=== PATIENT | male | born 1960 | race African-American/Black ===

== ENCOUNTER 2019-05-17 21:16 | Emergency (ER) | payer OTHER, SELFPAY ==
[2019-05-17 22:27] LABS: Absolute Lymphocytes (CBC) 1.4 K/uL (0.7-4.9); Basophils % 0.3 % (0-1.3); Hematocrit 38.2 % (39.6-49.0); Lymphocytes % 11.6 % (15.3-44.8); MPV 8.3 fL (7.6-11.3); RBC Red Blood Cell Count 4.37 M/uL (4.33-5.43)
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
[2019-05-17 22:37] LABS: Potassium 3.7 mmol/L (3.5-5.1)
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
== END 2019-05-17 22:39 | disposition home or self-care (01) ==
LOC: ER 21:16
DX: S06.0X9A Concussion with loss of consciousness of unspecified duration, initial encounter (principal); S76.011A Strain of muscle, fascia and tendon of right hip, initial encounter; V80.010A Animal-rider injured by fall from or being thrown from horse in noncollision accident, initial encounter; Y93.52 Activity, horseback riding; Y92.9 Unspecified place or not applicable
CPT/HCPCS: 36415; 70450; 71045; 72125; 80048; 85025; 86850; 86900; 86901; 99284